=== PATIENT | male | born 1975 | race Caucasian/White ===

== ENCOUNTER 2020-01-15 18:17 | Emergency (ER) | payer SELFPAY ==
[~2020-01-15] VITALS: Ht 170.2 cm; Wt 61.0 kg
[2020-01-15 18:27] VITALS: BP 130/85
== END 2020-01-15 19:08 | disposition left against medical advice (07) ==
LOC: ER 18:17
DX: M79.601 Pain in right arm (principal); Z53.21 Procedure and treatment not carried out due to patient leaving prior to being seen by health care provider